=== PATIENT | male | born 1965 | race American Indian/Alaskan Native ===

== ENCOUNTER 2018-07-27 20:30 | Emergency (ER) | payer MEDICAID ==
--- NOTE | 2018-07-27 20:43 | Emergency Department Report ---
Blank Doc - Documentation Documentation: This is a 53-year-old male that presents with "lump on the left sided of back". Denies any fever or chills. Denies any other symptoms of complaints. This initial assessment diagnostic orders/clinical plan/treatment(s) is/are subject to change based on patient's health status, clinical progression and re- assessment by fellow clinical providers in the ED. Further treatment and workup at subsequent clinical providers discretion. Patient/guardians urged not to elope from ED s their condition may be serious if not clinically assessed and managed. Initial orders include: 1-Patient sent to [facility] for further evaluation and treatment
[2018-07-27 20:46] VITALS: BP 137/92
--- NOTE | 2018-07-27 22:06 | Emergency Department Report ---
Abscess Boil HPI - HPI Chief Complaint: Skin/Abscess/Foreign Body Stated Complaint: LUMP ON BACK Time Seen by Provider: 07/27/18 20:41 Duration: >1 Week Location: Back (left upper back) Severity: Moderate History: Yes Pain, No Fever, No Purulent Drainage, No Numbness, No Foreign Body, No Previous History, No Insect Bite HPI: This is a 53-year-old -[place] male who presents with an abscess to left upper back for several months. Patient states initially was a small bump which he burst and a Jell-O cream came out. A few days later developed while returned with increased pain. He burst the bump again and a creamy discharge came out. He is now complaining of increased pain and swelling with redness to the area. Home Medications: Previous Rx's Medication Instructions Recorded Last Taken Type Butalb/Acetamin/Caff 50-325-40 1 tab PO Q8HR PRN #20 tablet 04/06/18 Unknown Rx [Fioricet] Sulfamethoxazole/Trimethoprim 1 each PO BID #20 tablet 07/27/18 Unknown Rx [Bactrim DS TAB] Allergies/Adverse Reactions: Allergies Allergy/AdvReac Type Severity Reaction Status Date / Time diphenhydramine AdvReac Hives Verified 04/06/18 17:03 [From Benadryl] iodine AdvReac Hives Verified 04/06/18 17:03 meperidine [From Demerol] AdvReac Itching Verified 04/06/18 17:03 shellfish derived AdvReac Hives Verified 04/06/18 17:03 ED Review of Systems ROS: Stated complaint: LUMP ON BACK Other details as noted in HPI Constitutional: denies: chills, fever Respiratory: denies: cough, shortness of breath, wheezing Cardiovascular: denies: chest pain, palpitations Gastrointestinal: denies: abdominal pain, nausea, diarrhea Skin: lesions (left upper back). denies: rash Neurological: denies: headache, weakness, paresthesias Psychiatric: denies: anxiety, depression ED Past Medical Hx - Past Medical History Hx CVA: Yes (7-ipok-abskt weakness) Hx Heart Attack/AMI: Yes (2) Hx Headaches / Migraines: Yes Additional medical history: left lower leg weakness from previous surgery - Surgical History Additional Surgical History: back surgery - Social History Smoking Status: Current Every Day Smoker Substance Use Type: None - Medications Home Medications: Home Medications Medication Instructions Recorded Confirmed Last Taken Type Butalb/Acetamin/Caff 50-325-40 1 tab PO Q8HR PRN #20 tablet 04/06/18 Unknown Rx [Fioricet] Sulfamethoxazole/Trimethoprim 1 each PO BID #20 tablet 07/27/18 Unknown Rx [Bactrim DS TAB] ED Abscess Boil Physical Exam - Exam General: Vital signs noted. No distress. Alert and acting appropriately. Size: 1 cm Exam: Yes Tenderness, Yes Fluctuance, Yes Surrounding Cellulites/Erythema, Yes Normal Neurologic Exam, Yes Normal Circulation, No Lymphangitis, No Crepitation, No Heart Murmur Exam: 1 cm fluctuant nodule to the left trapezius, tenderness, rebound erythema I & D Note - I & D Note I & D Note: The area was prepared and draped in the usual, sterile manner. The site was anesthetized with 1% lidocaine without epinephrine, 3 mL. A linear incision along the local skin lines was made and the purulent material expressed. The abcess was explored thoroughly and sequestered pockets were opened. Bleeding was minimal. Packing: idodoform. Followup: The patient tolerated the procedure well without complications. Standard post-procedure care was explained and return precautions are given. ED Course Vital Signs 07/27/18 20:44 Temperature 97.8 F Pulse Rate 98 H Respiratory 18 Rate Blood Pressure 137/92 O2 Sat by Pulse 99 Oximetry Critical care attestation.: If time is entered above; I have spent that time in minutes in the direct care of this critically ill patient, excluding procedure time. ED Medical Decision Making - Lab Data Result diagrams: 07/27/18 22:45 Lab Results 07/27/18 Range/Units 22:45 WBC 9.9 (4.5-11.0) K/mm3 RBC 4.49 (3.65-5.03) M/mm3 Hgb 13.9 (11.8-15.2) gm/dl Hct 40.7 (35.5-45.6) % MCV 91 (84-94) fl MCH 31 (28-32) pg MCHC 34 (32-34) % RDW 13.9 (13.2-15.2) % Plt Count 309 (140-440) K/mm3 Lymph % (Auto) 29.7 (13.4-35.0) % Frederick % (Auto) 8.5 H (0.0-7.3) % Eos % (Auto) 1.4 (0.0-4.3) % Baso % (Auto) 0.6 (0.0-1.8) % Lymph # 2.9 (1.2-5.4) K/mm3 Frederick # 0.8 (0.0-0.8) K/mm3 Eos # 0.1 (0.0-0.4) K/mm3 Baso # 0.1 (0.0-0.1) K/mm3 Seg Neutrophils % 59.8 (40.0-70.0) % Seg Neutrophils # 5.9 (1.8-7.7) K/mm3 - Medical Decision Making This is a 53 y.o. male that presents with a painful abscess to left trapezius for 2-3 months. No history of prior abscess. Patient is stable and examined by me. Physical assessment of 1 cm fluctuance nodule to left trapezius. No acute signs of distress noted. Given norco 5 mg po once in ER. I&D refer to note. Discussed plan to start bactrim DS and tramadol with patient. Educated patient and spouse on follow up plan to have packing removed and wound reassessed in 2-3 days. Patient agrees to ED plan of care. Discharged home and follow up with PCP in 2-3 days. ED Disposition Clinical Impression: Cellulitis and abscess of trunk Disposition: DC-01 TO HOME OR SELFCARE Is pt being admited?: No Does the pt Need Aspirin: No Condition: Stable Instructions: Abscess Incision and Drainage (ED), Abscess (ED) Additional Instructions: Keep packing in place for 2-3 days. Return to ER or f/u with PCP to have packing removed and wound reassessed. Complete full round of bactrim DS antibiotic as prescribed. Follow up with PCP or ER in 2-3 days. Return to ER if foul smelling discharge, swelling, or severe pain to wound. Prescriptions: Sulfamethoxazole/Trimethoprim [Bactrim DS TAB] 1 each PO BID #20 tablet Referrals: SWAPNIL BUSH [Primary Care Provider] - 3-5 Days [facility] [Outside] - 3-5 Days [facility] [Outside] - 3-5 Days Forms: Accompanied Note, Work/School Release Form(ED) Time of Disposition: 00:00
[2018-07-27 22:55] LABS: Basophils # (Auto) 0.1 K/mm3 (0.0-0.1); Basophils % (Auto) 0.6 % (0.0-1.8); Eosinophils # (Auto) 0.1 K/mm3 (0.0-0.4); Eosinophils % (Auto) 1.4 % (0.0-4.3); Hematocrit 40.7 % (35.5-45.6); Hemoglobin 13.9 gm/dl (11.8-15.2); Lymphocytes # (Auto) 2.9 K/mm3 (1.2-5.4); Lymphocytes % (Auto) 29.7 % (13.4-35.0); Mean Corpuscular HGB Conc 34 % (32-34); Mean Corpuscular Volume 91 fl (84-94); Monocytes # (Auto) 0.8 K/mm3 (0.0-0.8); Monocytes % (Auto) 8.5 % (0.0-7.3); Platelet Count 309 K/mm3 (140-440); Red Blood Count 4.49 M/mm3 (3.65-5.03); Red Cell Distribution Width 13.9 % (13.2-15.2)
[2018-07-27] MEDS ORDERED: XYLOCAINE 1% MPF 5 mL INFILTRATI ONE (23:17)
[2018-07-27] MEDS ORDERED: NORCO 5/325 PO ONE (23:57)
== END 2018-07-28 00:28 | disposition home or self-care (01) ==
LOC: ED 20:30
DX: L02.212 Cutaneous abscess of back [any part, except buttock and flank] (principal); I25.2 Old myocardial infarction; G43.909 Migraine, unspecified, not intractable, without status migrainosus; F17.200 Nicotine dependence, unspecified, uncomplicated; Z86.73 Personal history of transient ischemic attack (TIA), and cerebral infarction without residual deficits; Z91.013 Allergy to seafood; Z88.8 Allergy status to other drugs, medicaments and biological substances
CPT/HCPCS: 36415; 85025; 99283